=== PATIENT | male | born 1970 | race Caucasian/White ===

== ENCOUNTER 2023-06-15 11:06 | Emergency (ER) | payer MEDICAID ==
[~2023-06-15] VITALS: Ht 172.7 cm; Wt 68.0 kg
[2023-06-15 11:19] VITALS: O2SAT 100
[2023-06-15 11:44] VITALS: BP 139/83; PULSE 84; RESP 11; TEMP 98.1
[2023-06-15 12:00] LABS: HEMATOCRIT. 43.2 % (42.0-52.0); HEMOGLOBIN. 14.7 g/dL (14.0-18.0); MEAN CORPUSCULAR HEMOGLOBIN 28.8 pg (28.0-32.0); MEAN CORPUSCULAR VOLUME 84.8 fL (80.0-94.0); MEAN PLATELET VOLUME 8.2 fl (7.4-10.4); PLATELET 270 x1000/uL (130-400); RED CELL DISTRIBUTION WIDTH 13.7 % (11.6-14.6); WHITE BLOOD COUNT 9.9 x1000/uL (4.5-11.0)
[2023-06-15 12:04] LABS: DIFFERENTIAL COMMENT 1
[2023-06-15 12:50] LABS: ALANINE AMINOTRANSFERASE 19 IU/L (10-49); ALBUMIN 4.5 g/dL (3.2-4.8); ASPARTATE AMINOTRANSFERASE 18 IU/L (<34); BILIRUBIN TOTAL 0.5 mg/dL (0.1-1.0); CALCIUM 9.1 mg/dL (8.7-10.4); CARBON DIOXIDE 28 mEq/L (21-32); CHLORIDE 97 mEq/L (98-107); CREATININE 0.8 mg/dL (0.6-1.3); ETHANOL BLOOD < 10 mg/dL (<10); GLUCOSE 284 mg/dL (70-105); POTASSIUM 4.9 mEq/L (3.5-5.1); PROTEIN TOTAL 7.3 g/dL (6.0-8.3); SODIUM 136 mEq/L (136-145); UREA NITROGEN BLOOD 6 mg/dL (9-23)
[2023-06-15 13:21] LABS: PLATELET ESTIMATE NORMAL
== END 2023-06-15 17:34 | disposition home or self-care (01) ==
LOC: EDBD 11:06 → ER 11:06
DX: T40.2X1A Poisoning by other opioids, accidental (unintentional), initial encounter (principal); Y92.9 Unspecified place or not applicable
CPT/HCPCS: 80053; 80320; 85025; 36415; 99283; Z7610; G0480